=== PATIENT | male | born 1975 | race Caucasian/White ===

== ENCOUNTER 2020-07-27 17:47 | Outpatient (CLI) | payer BC, SELFPAY | END 2020-07-27 17:48 | disposition home or self-care (01) | LOC: ANHCOVIDVC 17:47 | PROVIDERS: PCP Family Medicine | DX: Z23 Encounter for immunization (principal) | CPT/HCPCS: 0001A; 91300 ==

== ENCOUNTER 2020-08-02 18:08 | Emergency (ER) | payer BC, SELFPAY ==
[2020-08-02] VITALS (21 sets, daily range): BP systolic 140–167; BP diastolic 89–123; PULSE 63–84; RESP 5–23; TEMP 36.4; O2SAT 94–99
--- NOTE | ~2020-08-02 | XR_ITS ---
XR chest 1V portable DATE: 08/02/2020 18:26 INDICATION: Right chest pain, shoulder pain for 3 weeks TECHNIQUE: Portable AP chest COMPARISON: 08/09/2015 PA chest, right ribs FINDINGS: Normal heart size. No hilar or mediastinal enlargement. No pulmonary infiltrate or consol idation, pulmonary vascular congestion or pleural effusion or pneumothorax. IMPRESSION: No active cardiopulmonary disease Reviewed, dictated and finalized at location A.
--- NOTE | 2020-08-02 18:10 | ECG_ITS ---
Measurements Intervals [place] Rate: 80 P: 45 UT: 160 QRS: 37 QRSD: 105 T: 30 QT: 374 QTc: 433 Interpretive Statements SINUS RHYTHM INCOMPLETE RIGHT BUNDLE BRANCH BLOCK BORDERLINE ECG Electronically Signed On 08-02-2020 18:44:52 CDT by Neptali Cosme D.O.
[2020-08-02] MEDS: ASPIRIN 81 MG CHEWABLE TABLET 324 MG PO (18:19)
[2020-08-02 18:22] LABS: Basophils Absolute Auto 0.1 K/mm3 (0.0-0.1); Basophils Percent Auto 0.6 % (0.2-1.2); Eosinophils Absolute Auto 0.1 K/mm3 (0-0.3); Hematocrit 41.1 % (42.0-52.0); Immature Granulocyte Absolute 0.03 K/mm3 (0.00-0.031); Immature Granulocyte Percent A 0.4 % (0-0.5); Lymphocytes Percent Auto 25.4 % (18.3-44.2); Mean Corpuscular HGB Conc 34.1 g/dl (32-36); Mean Corpuscular Hemoglobin 31.5 pg (26-34); Mean Corpuscular Volume 92.4 fl (80-100); Mean Platelet Volume 9.5 fl (7.4-10.4); Monocytes Absolute Auto 0.6 K/mm3 (0.1-0.6); Monocytes Percent Auto 6.6 % (2.6-8.5); Neutrophils Absolute Auto 5.5 K/mm3 (1.3-6.7); Platelet Count Result 230 k/mm3 (150-375); Red Blood Count 4.45 M/mm3 (4.6-6.20); Red Cell Distribution Width 12.5 % (11.5-14.5); White Blood Count 8.3 K/mm3 (4.5-10.0)
[2020-08-02 18:36] LABS: INR 0.9; Partial Thromboplastin Time 28.3 SECONDS (22.3-36.8); Prothrombin Time 12.8 Seconds (11.1-14.7)
[2020-08-02 18:42] LABS: Anion Gap 11 mmol/L (8-16); Blood Urea Nitrogen 17 mg/dL (9-20); Calcium 9.6 mg/dL (8.4-10.2); Carbon Dioxide 27 mmol/L (22-30); Chloride 101 mmol/L (98-107); Estimated CRCL calculation 132 ml/min; Estimated Glomerular Filt Rate > 60; Glucose 99 mg/dL (75-110); Potassium 3.8 mmol/L (3.4-5.0); Sodium 139 mmol/L (137-145)
--- NOTE | 2020-08-02 18:46 | ED.GENADULT ---
HPI - General Adult General Chief complaint: Chest Pain Stated complaint: right chest pain Time Seen by Provider: 08/02/20 18:22 Source: patient History of Present Illness HPI narrative: Patient is a 44 y/o male complaining right sided chest pain radiating to right scapula for 2 weeks. he describes his pain as both sharp and dull. He rates his pain as 4/10. He took Ibuprofen and Aleve, which did not help. Related Data Allergies Allergy/AdvReac Type Severity Reaction Status Date / Time erythromycin base Allergy Unknown VOMITING? Verified 08/02/20 18:15 Penicillins Allergy Unknown Facial Verified 08/02/20 18:15 swelling Review of Systems Constitutional: Constitutional: Denies chills, Denies fever(s), Denies headache(s) and Denies weakness Eyes: Eyes: Denies blurry vision ENT: Denies headache(s) and Denies neck pain Cardiovascular: Cardiovascular: Reports chest pain and Denies dyspnea Respiratory: Respiratory: Denies cough and Denies dyspnea Gastrointestinal: Gastrointestinal: Denies abdominal pain, Denies diarrhea, Denies nausea and Denies vomiting Genitourinary: Genitourinary: Denies hematuria and Denies dysuria Musculoskeletal: Musculoskeletal: Reports back pain, Denies neck pain and Reports other (right scapula and back pain) Neurologic: Denies headache(s) and Denies weakness PMFSH Family History Family History Father Family history of hypercholesterolemia Grandparent Hypertension Family history of cardiovascular disease Carcinoma of colon Social History Social History Second hand tobacco smoke exposure: No Alcohol intake: current Exam Const: General: no acute distress and well developed Orientation/consciousness: oriented to person, oriented to place, oriented to time and patient oriented x3 HENMT: Head: normocephalic Ears: external ears normal General nose exam: Normal external nose present Eyes: General: appearance normal, both eyes and all related structures Conjunctivae: conjunctivae normal Neck: Neck: normal visual inspection and full ROM Chest: Chest palpation & inspection: normal inspection of the chest and no tenderness Resp: Effort & Inspection: normal respiratory effort Auscultation: clear to auscultation bilaterally Cardio: Rate: regular rate Rhythm: regular rhythm GI: GI Palp: No abdominal tenderness and Yes Soft to palpation Skin: General skin exam: normal color and turgor normal Neuro: General: oriented to person, oriented to place, oriented to time and patient oriented x3 Cognition (Neuro): normal cognition Extrem: General: normal to inspection, full ROM and no pedal edema Psych: Appearance: grossly normal Mental Status: mental status grossly normal Affect: normal affect Course Vital Signs Vital signs: Vital Signs Temperature 36.4 C L 08/02/20 18:11 Pulse Rate 84 08/02/20 18:11 Respiratory Rate 16 08/02/20 18:11 Blood Pressure 158/102 H 08/02/20 18:11 Pulse Oximetry 97 08/02/20 18:11 Temperature 36.4 C L 08/02/20 18:11 Pulse Rate 63 08/02/20 23:01 Respiratory Rate 17 08/02/20 23:01 Blood Pressure 141/91 H 08/02/20 23:01 Pulse Oximetry 97 08/02/20 23:01 Medical Decision Making Vital Signs Vital Signs: Vital Signs Temperature 36.4 C L 08/02/20 18:11 Pulse Rate 84 08/02/20 18:11 Respiratory Rate 16 08/02/20 18:11 Blood Pressure 158/102 H 08/02/20 18:11 Pulse Oximetry 97 08/02/20 18:11 Temperature 36.4 C L 08/02/20 18:11 Pulse Rate 63 08/02/20 23:01 Respiratory Rate 17 08/02/20 23:01 Blood Pressure 141/91 H 08/02/20 23:01 Pulse Oximetry 97 08/02/20 23:01 Lab Data Result diagrams: 08/02/20 18:16 08/02/20 18:16 Labs: Lab Results 08/02/20 08/02/20 08/02/20 Range/Units 18:16 18:16 18:16 WBC 8.3 (4.5-10.0) K/mm3 RBC 4.45 L (4.6-6.2
[2020-08-02 18:54] LABS: D Dimer 0.47 ug/mL (<0.48); Troponin I < 0.012 ng/mL (0.000-0.034)
--- NOTE | 2020-08-02 19:10 | PC.NURSE ---
Report received from KAYLIN Thompson. Pt resting comfortably on stretcher. States continues to have mild pain to right scapular area. Pt also seems mildly stressed regarding his BP. States has been reading fine at home; high when he was at [place] [employer], but not that high . Made aware of pending results. SR without ectopy via monitor.
[2020-08-02] MEDS: KETOROLAC 15 MG/ML VIAL (*BKC) IV PUSH (19:29)
[2020-08-02 21:39] LABS: Troponin I < 0.012 ng/mL (0.000-0.034)
[2020-08-02] MEDS: lisinopriL 20 MG TABLET PO (21:48)
[2020-08-02] MEDS: hydroCHLOROthiazide 25 MG TABLET PO (21:49)
--- NOTE | 2020-08-02 23:03 | PC.NURSE ---
Awaiting disposition per Dr. Goldberg. Pt resting comfortably on stretcher, denies needs at present.
== END 2020-08-02 23:00 | disposition home or self-care (01) ==
PROVIDERS: Emergency Medicine; Emergency Provider Emergency Medicine; PCP Family Medicine
DX: R07.9 Chest pain, unspecified (principal); I10 Essential (primary) hypertension; I45.10 Unspecified right bundle-branch block
CPT/HCPCS: 36415; 71045; 80048; 84484; 85025; 85380; 85610; 85730; 93005; 96374; 99284; A9270; J1885

== ENCOUNTER 2020-08-17 17:45 | Outpatient (CLI) | payer BC, SELFPAY | END 2020-08-17 17:46 | disposition home or self-care (01) | LOC: ANHCOVIDVC 17:45 | PROVIDERS: PCP Family Medicine | DX: Z23 Encounter for immunization (principal) | CPT/HCPCS: 0002A; 91300 ==

== ENCOUNTER 2021-04-18 12:11 | Emergency (ER) | payer BC, SELFPAY ==
[2021-04-18] VITALS (7 sets, daily range): BP systolic 114–131; BP diastolic 46–88; PULSE 75–94; RESP 18; TEMP 36.7; O2SAT 98–100
--- NOTE | ~2021-04-18 | CT_ITS ---
EXAMINATION: CT abdomen pelvis w con DATE: 04/18/2021 15:54 INDICATION: Right lower quadrant abdominal pain. TECHNIQUE: Computed tomography (CT) of the abdomen and pelvis was performed with 100 mL Omnipaque 350 intravenous contrast. Automated exposure control and iterative reconstruction technique were employe d. The dose-length product was 1537.52 mGy-cm. COMPARISON: None. FINDINGS: The visualized portions of the lung bases demonstrate mild atelectasis. No pleural effusion . The heart size is normal. No pericardial effusion. The liver, gallbladder, spleen, pancreas, adrena l glands, and kidneys are normal. The appendix is normal. There is wall thickening of the ascending c olon with adjacent mild fat stranding. There are no dilated loops of bowel. There are no pathological ly enlarged lymph nodes. There is trace pelvic ascites. There are bilateral inguinal hernias containi ng fat. There is mild lumbar spondylosis. IMPRESSION: 1. Wall thickening of the ascending colon with adjacent mild fat stranding, consistent with colitis. 2. Bilateral inguinal hernias containing fat. Reviewed, dictated and finalized at location A. RINTENDENT METER TESTS IMPRESSION: 1. Wall thickening of the ascending colon with adjacent mild fat stranding, con sistent with colitis. 2. Bilateral inguinal hernias containing fat.
[2021-04-18 13:00] LABS: Basophils Percent Auto 0.3 % (0.2-1.2); Eosinophils Absolute Auto 0.1 K/mm3 (0-0.3); Eosinophils Percent Auto 0.8 % (0-4.4); Hematocrit 39.8 % (42.0-52.0); Hemoglobin 13.6 g/dL (14.0-18.0); Immature Granulocyte Absolute 0.07 K/mm3 (0.00-0.031); Immature Granulocyte Percent A 0.6 % (0-0.5); Lymphocytes Absolute Auto 1.67 K/mm3 (0.9-3.2); Lymphocytes Percent Auto 14.1 % (18.3-44.2); Mean Corpuscular HGB Conc 34.2 g/dl (32-36); Mean Corpuscular Hemoglobin 32.5 pg (26-34); Mean Corpuscular Volume 95.2 fl (80-100); Mean Platelet Volume 9.2 fl (7.4-10.4); Monocytes Absolute Auto 0.6 K/mm3 (0.1-0.6); Monocytes Percent Auto 5.4 % (2.6-8.5); Neutrophils Absolute Auto 9.3 K/mm3 (1.3-6.7); Neutrophils Percent Auto 78.8 % (45.5-73.1); Platelet Count Result 203 k/mm3 (150-375); Red Blood Count 4.18 M/mm3 (4.6-6.20); Red Cell Distribution Width 12.4 % (11.5-14.5); White Blood Count 11.9 K/mm3 (4.5-10.0)
[2021-04-18 13:05] LABS: Add Urine Microscopic? NO; Appearance Urine Clear (Clear); Bilirubin Urine Negative (Negative); Blood Urine Negative (Negative); Color Urine Straw (Yellow); Glucose Urine UA Negative (Negative); Ketones Urine Negative (Negative); Leukocyte Esterase Ur Negative LEU/UL (Negative); Nitrate Urine Negative (Negative); Protein Urine Negative (Negative); Urobilinogen Urine Negative mg/dL (<2.0)
[2021-04-18 13:15] LABS: Alanine Aminotransferase 40 U/L (4-50); Albumin Level 4.6 g/dL (3.5-5.1); Alkaline Phosphatase 128 U/L (38-126); Anion Gap 9 mmol/L (8-16); Aspartate Amino Transferase 42 U/L (17-59); Bilirubin,Total 0.4 mg/dL (0.2-1.3); Blood Urea Nitrogen 10 mg/dL (9-20); Calcium 9.2 mg/dL (8.4-10.2); Carbon Dioxide 29 mmol/L (22-30); Chloride 96 mmol/L (98-107); Estimated CRCL calculation 117 ml/min; Estimated Glomerular Filt Rate > 60; Glucose 95 mg/dL (65-110); Lipase 85 U/L (23-300); Potassium 3.8 mmol/L (3.4-5.0); Sodium 134 mmol/L (137-145)
[2021-04-18 13:37] LABS: Specific Grav Ur 1.003 (1.001-1.035)
[2021-04-18] MEDS: ONDANSETRON INJ 4 MG/2 ML VIAL IV PUSH (17:21)
[2021-04-18] MEDS: MORPHINE SULFATE (*CRX) 2 MG/ML INJ IV PUSH (17:21)
--- NOTE | 2021-04-18 18:15 | PC.NURSE ---
Pt unable to give stool sample at this time EDP made aware.
--- NOTE | 2021-04-18 20:21 | ED.GENADULT ---
HPI - General Adult General Chief complaint: Abdominal Pain Stated complaint: Abdominal pain. Time Seen by Provider: 04/18/21 15:19 Source: patient and other (Primary care) Mode of arrival: ambulatory Limitations: no limitations History of Present Illness HPI narrative: Patient is a 45-year-old male with chief complaint of right upper and lower quadrant discomfort that began 2 days ago and accompanied by diarrhea. Patient reports that his diarrhea was liquid over the weekend but today has just been soft stools. He reports that he saw his primary care today and due to the location of the discomfort they wanted him to be evaluated to rule out appendicitis. Patient states that he has not been taking anything [id number] for his discomfort today as he did not want to cause any abnormal symptoms. Patient denies any vomiting. Patient denies any blood or mucus in his stool. Related Data Home Medications Medication Instructions Recorded Confirmed allopurinol mg PO DAILY 04/18/21 Allergies Allergy/AdvReac Type Severity Reaction Status Date / Time erythromycin base Allergy Unknown VOMITING? Verified 04/18/21 15:29 Penicillins Allergy Unknown Facial Verified 04/18/21 15:29 swelling Review of Systems Review of Systems: CONSTITUTIONAL: Denies fever, chills, or sweats. EYES: Denies visual changes, redness, or discharge. ENT: Denies rhinorrhea, congestion, sore throat, or otalgia. CARDIOVASCULAR: Denies chest pain, palpitations, or edema. RESPIRATORY: Denies cough or dyspnea. GASTROINTESTINAL: Reports diarrhea and abdominal pain denies vomiting GENITOURINARY: Denies dysuria or hematuria. SKIN: Denies rash or itching. MUSCULOSKELETAL: Denies back pain, joint pain, or myalgia. NEUROLOGIC: Denies headache, numbness, dizziness, or weakness. PSYCHIATRIC: Denies anxiety or depression. [facility] Family History Family History Father Family history of hypercholesterolemia Grandparent Hypertension Family history of cardiovascular disease Carcinoma of colon Social History Social History Second hand tobacco smoke exposure: No Alcohol intake: current Exam Narrative: GENERAL: Well-appearing, well-nourished, and in no acute distress. Does not appear toxic. HEAD: Normocephalic, atraumatic. EYES: PERRLA and EOMI. CHEST: Clear to auscultation. No respiratory distress. No wheezes rales or rhonchi HEART: Regular rate and rhythm. No murmur heard. Normal peripheral pulses. ABDOMEN: Soft, tender to right upper and lower quadrant, nondistended, normal active bowel sounds. EXTREMITIES: Normal range of motion. No edema. SKIN: Warm, dry, no rash. NEURO: No focal deficits. Alert and oriented x3. PSYCH: Normal mood and affect. Course Vital Signs Vital signs: Vital Signs Temperature 98.0 F 04/18/21 12:34 Pulse Rate 81 04/18/21 12:34 Respiratory Rate 18 04/18/21 12:34 Blood Pressure 126/75 04/18/21 12:34 Pulse Oximetry 99 04/18/21 12:34 Temperature 98.0 F 04/18/21 12:34 Pulse Rate 75 04/18/21 18:34 Respiratory Rate 18 04/18/21 18:34 Blood Pressure 114/80 04/18/21 18:34 Pulse Oximetry 100 04/18/21 18:34 Medical Decision Making [facility] Narrative Medical decision making narrative: Patient has colitis. Patient white blood cell count is slightly elevated. Patient has not had any stool since being in emergency department and cannot provide a sample at this time. Patient will be started on Levaquin and Flagyl. Patient has been instructed to do clear liquid diet over the next 2 days and then advance diet as tolerated. Patient instructed to keep close follow-up with his primary care as they may culture his stool. Patient been instructed to return to emergency department if he has any worsening or emergent symptoms. Vital Signs Vital Signs: Vital Signs Temperature 98.0 F 04/18/21 12:3
== END 2021-04-18 18:45 | disposition home or self-care (01) ==
PROVIDERS: Emergency Provider Emergency Medicine; PCP Family Medicine
DX: K52.9 Noninfective gastroenteritis and colitis, unspecified (principal); K40.20 Bilateral inguinal hernia, without obstruction or gangrene, not specified as recurrent
CPT/HCPCS: 36415; 74177; 80053; 81003; 83690; 85025; 96374; 96375; 99284; J2270; J2405; Q9967

== ENCOUNTER 2022-01-29 14:11 | Emergency (ER) | payer BC, SELFPAY ==
[2022-01-29 14:19] VITALS: BP 143/86; PULSE 96; RESP 16; TEMP 36.4; O2SAT 100
--- NOTE | 2022-01-29 14:24 | ED.ABDPAIN ---
HPI - Abdominal Pain General Chief Complaint: Abdominal Pain Stated Complaint: R SIDED ABD PAIN Time Seen by Provider: 01/29/22 14:22 Source: patient and RN notes reviewed Mode of arrival: ambulatory Limitations: no limitations History of Present Illness HPI narrative: 46-year-old man presents concern for right lower abdominal pain and diarrhea. Reports symptoms started yesterday, reports he is not vomiting or nauseated, he ate lunch. He reports his last bowel movement was today. He reports he felt feverish this morning, however did not have a temperature. He reports a history of colitis MD elicited complaint: abdominal pain Related Data Home Medications Medication Instructions Recorded Confirmed allopurinol 100 mg tablet 100 mg PO DAILY 04/18/21 01/29/22 Allergies Allergy/AdvReac Type Severity Reaction Status Date / Time erythromycin base Allergy Unknown VOMITING? Verified 01/29/22 14:18 Penicillins Allergy Unknown Facial Verified 01/29/22 14:18 swelling Review of Systems Review of Systems: CONSTITUTIONAL: Denies malaise, chills, sweats. Reports feeling feverish ENT: Denies rhinorrhea, congestion, sinus pain, otalgia or sore throat. CARDIOVASCULAR: Denies chest pain, palpitations, or edema. RESPIRATORY: Denies cough or dyspnea. GASTROINTESTINAL: Reports right lower quadrant abdominal pain, diarrhea. Denies nausea, vomiting GENITOURINARY: Denies dysuria or hematuria. MUSCULOSKELETAL: Denies myalgia. NEUROLOGIC: Denies headache. All systems reviewed & are unremarkable except as noted in HPI and below PMFSH Family History Family History Father Family history of hypercholesterolemia Grandparent Hypertension Family history of cardiovascular disease Carcinoma of colon Social History Social History Second hand tobacco smoke exposure: No Alcohol intake: current Comments At time of signature, agree with nursing past medical, surgical, social and family history. There is no relevant family history pertinent to the presenting complaint Exam Narrative: GENERAL: Well-appearing, well-nourished, and in no acute distress. HEAD: Normocephalic, atraumatic. EYES: PERRLA, conjunctivae clear ENT: Nares clear. Mucous membranes moist. NECK: Supple. No lymphadenopathy CHEST: Speaks in full sentences. No respiratory distress. HEART: Regular rate and rhythm. ABDOMEN: Soft, obese, nondistended. Right lower quadrant tenderness. No guarding, rebound tenderness, or rigidity. No pulsatile masses. Bowel sounds present in all four quadrants. No organomegaly. No periumbilical tenderness. SKIN: Warm, dry, no rash. NEURO: Alert and oriented x3. PSYCH: Normal mood and affect Course Course Emergency Course: Patient is aware of, understands and agrees to be seen in the emergency department. Patient agrees to proceed directly to the emergency department. Portions of this record may have been created with voice recognition software Level of Care: Express Care Visit Vital Signs Vital signs: Vital Signs Temperature 97.5 F L 01/29/22 14:19 Pulse Rate 96 01/29/22 14:19 Respiratory Rate 16 01/29/22 14:19 Blood Pressure 143/86 H 01/29/22 14:19 Pulse Oximetry 100 01/29/22 14:19 Temperature 97.5 F L 01/29/22 14:19 Pulse Rate 96 01/29/22 14:19 Respiratory Rate 16 01/29/22 14:19 Blood Pressure 143/86 H 01/29/22 14:19 Pulse Oximetry 100 01/29/22 14:19 Reviewed. Transfer Transfered to: [facility]: Other Transfer rationale: Called abdominal pain Accepting physician: Jack MEDINA - Abdominal Pain MDM Narrative Medical decision making narrative: Exam findings warrant further evaluation emergency department; patient is non-toxic appearing and is in no distress. Patient is appropriate for transfer via private vehicle Critical Care Time Critical Care Time Cr
== END 2022-01-29 14:32 | disposition short-term general hospital (02) ==
PROVIDERS: Emergency Provider Nurse Practitioner; PCP Family Medicine
DX: R10.31 Right lower quadrant pain (principal); E78.00 Pure hypercholesterolemia, unspecified; I10 Essential (primary) hypertension
CPT/HCPCS: 99212; G0463

== ENCOUNTER 2022-01-29 14:49 | Emergency (ER) | payer BC, SELFPAY ==
--- NOTE | ~2022-01-29 | CT_ITS ---
EXAMINATION: CT abdomen pelvis w con DATE: 01/29/2022 16:50 INDICATION: abd pain, diarrhea TECHNIQUE: Computed tomography (CT) of the abdomen and pelvis was performed with 100 mL Omnipaque-350 intravenous contrast. Automated exposure control and iterative reconstruction technique were employe d. The dose-length product was 937.38 mGy-cm. COMPARISON: 04/18/2021. FINDINGS: Lower thorax: Coronary versus mitral calcification. Dependent atelectasis. Liver: Normal. Biliary/Gallbladder: Gallbladder is normal. No bile duct dilation. Pancreas: No mass or duct dilation. Spleen: Normal. Adrenals:No mass. Kidneys: No mass, stone, or hydronephrosis. GI tract: No small or large bowel dilation. Normal appendix. Mesentery/Peritoneum: No ascites, mass, or free air. Retroperitoneum: No mass. Mild atherosclerotic abdominal aortic and/or arterial calcifications. Pelvis: Pelvic organs are within normal limits. Soft Tissues: Small uncomplicated fat-containing bilateral inguinal hernias. Bones: No acute osseous finding. IMPRESSION: No acute abdominopelvic process detected Reviewed, dictated and finalized at location K.
[2022-01-29 14:53] VITALS: BP 127/72; PULSE 76; RESP 14; TEMP 36.7; O2SAT 100
[2022-01-29 15:54] LABS: Appearance Urine Clear (Clear); Basophils Percent Auto 0.5 % (0.2-1.2); Bilirubin Urine Negative (Negative); Blood Urine Negative (Negative); Color Urine Yellow (Yellow); Eosinophils Absolute Auto 0.1 K/mm3 (0-0.3); Glucose Urine UA Negative (Negative); Hematocrit 38.2 % (42.0-52.0); Immature Granulocyte Absolute 0.02 K/mm3 (0.00-0.031); Immature Granulocyte Percent A 0.3 % (0-0.5); Ketones Urine Negative (Negative); Leukocyte Esterase Ur Negative LEU/UL (Negative); Lymphocytes Absolute Auto 1.29 K/mm3 (0.9-3.2); Lymphocytes Percent Auto 20.7 % (18.3-44.2); Mean Corpuscular Hemoglobin 32.2 pg (26-34); Mean Corpuscular Volume 94.6 fl (80-100); Mean Platelet Volume 9.1 fl (7.4-10.4); Monocytes Absolute Auto 0.6 K/mm3 (0.1-0.6); Monocytes Percent Auto 8.8 % (2.6-8.5); Neutrophils Absolute Auto 4.3 K/mm3 (1.3-6.7); Neutrophils Percent Auto 68.7 % (45.5-73.1); Nitrate Urine Negative (Negative); Platelet Count Result 182 k/mm3 (150-375); Protein Urine Negative (Negative); Red Blood Count 4.04 M/mm3 (4.6-6.20); Urobilinogen Urine 0.2 mg/dL (<2.0); White Blood Count 6.2 K/mm3 (4.5-10.0); pH Urine 8.5 (5.0-9.0)
[2022-01-29 15:57] VITALS: BP 113/70; PULSE 76; RESP 18; O2SAT 100
--- NOTE | 2022-01-29 15:57 | ED.ABDPAIN ---
HPI - Abdominal Pain General Chief Complaint: Abdominal Pain Stated Complaint: RLQ pain Time Seen by Provider: 01/29/22 14:55 Source: patient Mode of arrival: ambulatory Limitations: no limitations History of Present Illness HPI narrative: This is a 46 year old male that presents to the ER for RLQ pain ongoing since yesterday. Associated with diarrhea. Denies fevers, dysuria, hematuria, or vomiting. Related Data Home Medications Medication Instructions Recorded Confirmed allopurinol 100 mg tablet 100 mg PO DAILY 04/18/21 01/29/22 Allergies Allergy/AdvReac Type Severity Reaction Status Date / Time erythromycin base Allergy Unknown VOMITING? Verified 01/29/22 14:18 Penicillins Allergy Unknown Facial Verified 01/29/22 14:18 swelling Review of Systems Review of Systems: CONSTITUTIONAL: Denies fever GASTROINTESTINAL: Reports nausea, and diarrhea. Denies vomiting GENITOURINARY: Denies dysuria or hematuria. All systems reviewed & are unremarkable except as noted in HPI and below PMFSH Past Medical History Medical History (Updated 01/29/22 @ 17:06 by Paloma Do PA-C) History of hypertension Family History Family History Father Family history of hypercholesterolemia Grandparent Hypertension Family history of cardiovascular disease Carcinoma of colon Social History Social History Second hand tobacco smoke exposure: No Alcohol intake: current Exam Narrative: GENERAL: Well-appearing, well-nourished, and in no acute distress. HEAD: Normocephalic, atraumatic. EYES: EOMI. CHEST: Clear to auscultation. No respiratory distress. No wheezes rales or rhonchi HEART: Regular rate and rhythm. No murmur heard. Normal peripheral pulses. ABDOMEN: Soft, nondistended, normal active bowel sounds. Mild tenderness to palpation in the right lower quadrant, without guarding. No CVA tenderness EXTREMITIES: Normal range of motion. No edema. SKIN: Warm, dry, no rash. NEURO: No focal deficits. Alert and oriented x3. PSYCH: Normal mood and affect Course Vital Signs Vital signs: Vital Signs Temperature 98.0 F 01/29/22 14:53 Pulse Rate 76 01/29/22 14:53 Respiratory Rate 14 01/29/22 14:53 Blood Pressure 127/72 01/29/22 14:53 Pulse Oximetry 100 01/29/22 14:53 Oxygen Delivery Room Air 01/29/22 14:53 Temperature 98.0 F 01/29/22 14:53 Pulse Rate 76 01/29/22 15:57 Respiratory Rate 18 01/29/22 15:57 Blood Pressure 113/70 01/29/22 15:57 Pulse Oximetry 100 01/29/22 15:57 Oxygen Delivery Room Air 01/29/22 14:53 MDM - Abdominal Pain MDM Narrative Medical decision making narrative: Patient presents emergency department for abdominal discomfort and diarrhea. He is afebrile and nontoxic-appearing. His vitals are stable. CBC is without leukocytosis. Metabolic panel and lipase without concerning findings. UA without evidence of infection. CT scan of the abdomen and pelvis without acute findings. Patient was updated on case findings. Instructed to have follow-up with primary care doctor. He was given warnings to return to the ER Lab Data Attestation: I reviewed the patient's lab results. Result diagrams: 01/29/22 15:43 01/29/22 15:43 Labs: Lab Results 01/29/22 01/29/22 01/29/22 Range/Units 15:43 15:43 15:43 WBC 6.2 (4.5-10.0) K/mm3 RBC 4.04 L (4.6-6.20) M/mm3 Hgb 13.0 L (14.0-18.0) g/dL Hct 38.2 L (42.0-52.0) % MCV 94.6 (80-100) fl MCH 32.2 (26-34) pg MCHC 34.0 (32-36) g/dl RDW 13.0 (11.5-14.5) % Plt Count 182 (150-375) k/mm3 MPV 9.1 (7.4-10.4) fl Immature Gran % (Auto) 0.3 (0-0.5) % Neut % (Auto) 68.7 (45.5-73.1) % Lymph % (Auto) 20.7 (18.3-44.2) % [place] % (Auto) 8.8 H (2.6-8.5) % Eos % (Auto) 1.0 (0-4.4) % Baso % (Auto) 0.5 (0.2-1.2) % Lymp
[2022-01-29 16:00] LABS: Alanine Aminotransferase 39 U/L (6-50); Albumin Level 4.2 g/dL (3.5-5.1); Alkaline Phosphatase 96 U/L (38-126); Anion Gap 8 mmol/L (8-16); Aspartate Amino Transferase 47 U/L (17-59); Bilirubin,Total 0.3 mg/dL (0.2-1.3); Blood Urea Nitrogen 16 mg/dL (9-20); Calcium 9.1 mg/dL (8.4-10.2); Carbon Dioxide 28 mmol/L (22-30); Chloride 102 mmol/L (98-107); Estimated CRCL calculation 109 ml/min; Estimated Glomerular Filt Rate > 60; Glucose 100 mg/dL (65-110); Lipase 176 U/L (23-300); Potassium 3.7 mmol/L (3.4-5.0); Sodium 138 mmol/L (137-145)
[2022-01-29 16:04] LABS: Add Urine Microscopic? NO
--- NOTE | 2022-01-29 16:40 | PC.NURSE ---
Pt to CT
[2022-01-29 17:30] VITALS: BP 101/75; PULSE 73; RESP 18; O2SAT 100
== END 2022-01-29 17:30 | disposition home or self-care (01) ==
PROVIDERS: Physician Assistant; Emergency Provider Emergency Medicine; PCP Family Medicine
DX: R19.7 Diarrhea, unspecified (principal); I10 Essential (primary) hypertension
CPT/HCPCS: 36415; 74177; 80053; 81003; 83690; 85025; 99284; Q9967

== ENCOUNTER 2022-07-10 08:21 | Outpatient (CLI) | payer OTHER, SELFPAY ==
[2022-07-10 18:48] LABS: Kit Draw Collected
== END 2022-07-10 08:22 | disposition home or self-care (01) ==
LOC: ANHGOSHLAB 08:22
PROVIDERS: PCP Family Medicine; Visit Provider Clinical Nurse Specialist
DX: I10 Essential (primary) hypertension (principal); Z13.228 Encounter for screening for other metabolic disorders
CPT/HCPCS: 36415

== ENCOUNTER 2022-07-18 07:46 | Emergency (ER) | payer OTHER, SELFPAY ==
[2022-07-18] VITALS (13 sets, daily range): BP systolic 113–129; BP diastolic 74–93; PULSE 70–89; RESP 16–23; TEMP 36.7; O2SAT 97–100
--- NOTE | ~2022-07-18 | XR_ITS ---
EXAMINATION: XR chest 2V DATE: 07/18/2022 08:14 INDICATION: Chest pain. TECHNIQUE: Frontal and lateral views of the chest were obtained. COMPARISON: Chest single view 08/02/2020, CT abdomen and pelvis 01/29/2022 FINDINGS: There is no pneumonia, pleural effusion, or pneumothorax. The heart size is normal. IMPRESSION: 1. No acute cardiopulmonary disease. Reviewed, dictated and finalized at location A. [employer]INTENANCE MANAGER
--- NOTE | 2022-07-18 07:51 | ECG_ITS ---
Measurements Intervals [place] Rate: 72 P: 51 VT: 186 QRS: 52 QRSD: 96 T: 42 QT: 367 QTc: 404 Interpretive Statements SINUS RHYTHM BASELINE ARTIFACT RSR' IN V1, NORMAL VARIATION NORMAL ECG COMPARED TO ECG 08/02/2020 18:15:29 NO SIGNIFICANT CHANGES Electronically Signed On 07-18-2022 15:19:51 [employer]IST by Jaret Goncalves M.D.
[2022-07-18 08:06] LABS: Basophils Absolute Auto 0.1 K/mm3 (0.0-0.1); Basophils Percent Auto 0.8 % (0.2-1.2); Eosinophils Absolute Auto 0.1 K/mm3 (0-0.3); Hematocrit 42.9 % (42.0-52.0); Hemoglobin 14.6 g/dL (14.0-18.0); Immature Granulocyte Absolute 0.02 K/mm3 (0.00-0.031); Immature Granulocyte Percent A 0.3 % (0-0.5); Lymphocytes Absolute Auto 1.28 K/mm3 (0.9-3.2); Lymphocytes Percent Auto 20.7 % (18.3-44.2); Mean Corpuscular Hemoglobin 31.8 pg (26-34); Mean Corpuscular Volume 93.5 fl (80-100); Mean Platelet Volume 9.2 fl (7.4-10.4); Monocytes Absolute Auto 0.5 K/mm3 (0.1-0.6); Monocytes Percent Auto 7.8 % (2.6-8.5); Neutrophils Absolute Auto 4.3 K/mm3 (1.3-6.7); Neutrophils Percent Auto 69.4 % (45.5-73.1); Platelet Count Result 216 k/mm3 (150-375); Red Blood Count 4.59 M/mm3 (4.6-6.20); Red Cell Distribution Width 12.2 % (11.5-14.5); White Blood Count 6.2 K/mm3 (4.5-10.0)
[2022-07-18 08:15] LABS: Alanine Aminotransferase 34 U/L (6-50); Albumin Level 4.9 g/dL (3.5-5.1); Alkaline Phosphatase 82 U/L (38-126); Anion Gap 6 mmol/L (8-16); Aspartate Amino Transferase 37 U/L (17-59); Bilirubin,Total 0.5 mg/dL (0.2-1.3); Blood Urea Nitrogen 17 mg/dL (9-20); Calcium 9.4 mg/dL (8.4-10.2); Carbon Dioxide 31 mmol/L (22-30); Chloride 97 mmol/L (98-107); Estimated CRCL calculation 112 ml/min; Estimated Glomerular Filt Rate > 60; Glucose 77 mg/dL (65-110); Lipase 176 U/L (23-300); Potassium 3.8 mmol/L (3.4-5.0); Sodium 134 mmol/L (137-145)
[2022-07-18 08:18] LABS: Prothrombin Time 12.5 Seconds (11.1-14.7)
[2022-07-18 08:20] LABS: Partial Thromboplastin Time 27.7 SECONDS (22.3-36.8)
[2022-07-18 08:26] LABS: Troponin I < 0.012 ng/mL (0.000-0.034)
[2022-07-18] MEDS: ASPIRIN 81 MG CHEWABLE TABLET 324 MG PO (08:26)
--- NOTE | 2022-07-18 08:59 | ED.GENADULT ---
HPI - General Adult General Chief complaint: Chest Pain Stated complaint: chest pain Time Seen by Provider: 07/18/22 08:08 History of Present Illness HPI narrative: 46-year-old male with history of hypertension presenting to the emergency department for evaluation of right-sided chest pain. Patient states he does work out and did a new workout Sunday facilitated by his obedience trainer using sandbags. Patient denied any chest pain with exertion during the exercise but states on Sunday he started having some right-sided chest wall tightness. Patient states the pain is worsened with movement. Patient states he did have some radiation of the pain to his posterior shoulder/scapula. Patient denies any associated shortness of breath denies any radiation of the pain to his neck or arms. Patient reports he did have a stress test approximately 2 years ago and this was negative. Patient states he does have history of hypertension but had recent labs drawn reports that his cholesterol was good and denies having diabetes. Related Data Home Medications Medication Instructions Recorded Confirmed allopurinol 100 mg tablet 100 mg PO DAILY 04/18/21 01/29/22 Allergies Allergy/AdvReac Type Severity Reaction Status Date / Time erythromycin base Allergy Unknown VOMITING? Verified 07/03/22 14:27 Penicillins Allergy Unknown Facial Verified 07/03/22 14:27 swelling Review of Systems Review of Systems: CONSTITUTIONAL: Denies fever, chills, or sweats. EYES: Denies visual changes, redness, or discharge. ENT: Denies rhinorrhea, congestion, sore throat, or otalgia. CARDIOVASCULAR: See HPI RESPIRATORY: Denies cough or dyspnea. GASTROINTESTINAL: Denies abdominal pain, nausea, vomiting, or diarrhea. GENITOURINARY: Denies dysuria or hematuria. SKIN: Denies rash or itching. MUSCULOSKELETAL: See HPI NEUROLOGIC: Denies headache, numbness, or weakness. REPLACED BY [facility] Past Medical History Medical History History of hypertension Family History Family History Father Family history of hypercholesterolemia Grandparent Hypertension Family history of cardiovascular disease Carcinoma of colon Social History Social History (Updated 07/03/22 @ 14:29 by Lotus Pederson MA) Smoking status: Never smoker Second hand tobacco smoke exposure: No Alcohol intake: current Lack of Transportation: No Lack of Food: Never True Current Housing: I Have Housing Concerned About Future Housing: No Difficulty Paying Gas/Electric Bills: No Difficulty Paying for Meds: No Currently Unemployed: No Education: Bachelor's Degree Difficulty w/ Childcare or Family Care: No Exam Narrative: APPEARANCE: Well appearing, no pain, no distress, well-nourished. HEAD: normocephalic, atraumatic. EYES: PERRLA/EOMI, conjunctivae clear. NOSE: Normal no drainage NECK: Supple. No adenopathy, no masses. RESPIRATORY: Airway patent, respirations nonlabored. Clear to auscultation bilaterally, no rales, rhonchi, wheezing. CARDIOVASCULAR: Regular rate and rhythm without murmurs rubs or gallops. ABDOMINAL: Soft, nontender, nondistended, normal bowel sounds MUSCULOSKELETAL: Moves all extremities. Reproducible tenderness to the lateral pectoralis. Patient's symptoms were worsened with an gaging of the muscle. NEURO: Alert. Cranial nerves II through XII intact. Grossly intact SKIN: Warm, dry. Normal Color Course Course Emergency Course: 46-year-old male presenting to the emergency department for evaluation of chest pain. Patient's initial EKG showed normal sinus rhythm. Patient's chest x-ray showed no acute cardiopulmonary disease. Patient's initial troponin was negative. Patient is afebrile with no leukocytosis. Patient's pain is very reproducible with palpation. Musculoskeletal etiology is most likely. Patient is having a delta troponin. Patient was updated
[2022-07-18 11:31] LABS: Troponin I < 0.012 ng/mL (0.000-0.034)
== END 2022-07-18 12:34 | disposition home or self-care (01) ==
PROVIDERS: Emergency Provider Emergency Medicine
DX: R07.89 Other chest pain (principal); I10 Essential (primary) hypertension
CPT/HCPCS: 36415; 71046; 80053; 83690; 84484; 85025; 85610; 85730; 93005; 99284; A9270

== ENCOUNTER 2022-08-10 07:43 | Outpatient (CLI) | payer OTHER, SELFPAY ==
--- NOTE | ~2022-08-10 | CT_ITS ---
CT Scan of the Chest without Contrast: Clinical Indication: Chest discomfort Technique: Contiguous sections were acquired throughout the chest without intravenous contrast. Dose reduction technique was used on this scan by utilizing automated exposure control and iterative recon struction technique. The dose-length product (DLP) was 397.52 mGy-cm. Findings: There is no evidence of any significant mediastinal, hilar or axillary lymphadenopathy. The mediastin al soft tissues appear normal. There is no evidence of pleural or pericardial effusion. The lungs are clear. No pulmonary nodules or infiltrates are noted. Images through the upper abdomen reveal no abnormalities. Impression: No significant abnormalities seen. Reviewed, dictated and finalized at location . Impression: No significant abnormalities seen.
--- NOTE | 2022-08-10 07:52 | EST_ITS ---
Patient Info Name: Jose Maria Rosales Age: 46 years : 1975 Gender: Male Ht: 70 in Wt: 230 lbs BSA: 2.30 m2 HR: 71 bpm BP: 116 / 78 mmHg Technical Quality: Fair Exam Date: 08/10/2022 8:57 AM Exam Location: [facility] Pulmonary Exam Room: [facility] STRESS LAB Patient Status: Outpatient Admit Date: 08/10/2022 Staff Ordering Physician: Guerline Serra Market Investigator: Angle Cortez RDCS Attending Provider: DR. HARDING Referring Physician: Ponce MCCORD; Exercise Technologist: Junie Wong CT Exercise Physician: Neptali Harding DO Exam Type: CA stress echo w contrast Study Info Indications R07.9 - Chest pain, unspecified Treadmill exercise stress echocardiogram is performed. Contrast administered to opacify the left ventricle and to improve the deliniation of the left ventricular endocardial borders. Contrast/Agitated Saline Contrast/Ag. Saline: Definity Amount: 2.00 ml Administered By: Angle Cortez [facility] Existing IV Access: Yes IV Access Condition: patent with no signs of infiltration New IV Access: Inner Forearm and Right Site Condition: IV removed Summary 1. 1. Negative Leonard exercise stress test for ischemic ST changes by ECG criteria. 2. 2. Good functional capacity, achieving 12 METs of workload. 3. 3. Appropriate HR response to exercise. 4. 4. Appropriate HR recovery at 1 minute post exercise. 5. 5. Negative stress echocardiogram for ischemia by wall motion analysis. 6. 6. Patient informed of the above results. Stress Echo Findings Left Ventricle Definity contrast administered improved wall motion interpretation. Appropriate increase in LV endocardial thickening with systole. Appropriate augmentation of contractility with systole. No wall motion abnormality. Left Ventricle Definity contrast administered improved wall motion interpretation. Normal LV systolic function, no wall motion abnormality. Protocol: Leonard Stress ECG Details Stage: REST Duration (min): 1 min : 53 sec Speed (mph): 0.0 Grade (%): 0 HR (bpm): 73 SBP (mmHg): 116 DBP (mmHg): 78 METS: --- Stage: REST Duration (min): 55 min : 16 sec Speed (mph): 0.0 Grade (%): 0 HR (bpm): 79 SBP (mmHg): 116 DBP (mmHg): 78 METS: --- Stage: STAGE 1 Duration (min): 1 min : 0 sec Speed (mph): 1.7 Grade (%): 10 HR (bpm): 104 SBP (mmHg): 116 DBP (mmHg): 78 METS: --- Stage: STAGE 1 Duration (min): 2 min : 0 sec Speed (mph): 1.7 Grade (%): 10 HR (bpm): 113 SBP (mmHg): 116 DBP (mmHg): 78 METS: --- Stage: STAGE 1 Duration (min): 3 min : 0 sec Speed (mph): 1.7 Grade (%): 10 HR (bpm): 111 SBP (mmHg): 114 DBP (mmHg): 47 METS: --- Stage: STAGE 2 Duration (min): 1 min : 0 sec Speed (mph): 2.5 Grade (%): 12 HR (bpm): 124 SBP (mmHg): 114 DBP (mmHg): 47 METS: --- Stage: STAGE 2 Duration (min): 2 min : 0 sec Speed (mph): 2.5 Grade (%): 12 HR (bpm): 131 SBP (mmHg): 147 DBP (mmHg): 56 METS: --- Stage: STAGE 2 Pia
[2022-08-10] MEDS: PERFLUTREN LIPID MICROSPHERES 1.5 ML VIAL DILUTED TO 10 ML TOTAL VOLUME IV PUSH (09:30)
== END 2022-08-10 07:44 | disposition home or self-care (01) ==
PROVIDERS: PCP Internal Medicine; Visit Provider Clinical Nurse Specialist
DX: R07.9 Chest pain, unspecified (principal)
CPT/HCPCS: 71250; 93351; C8930

== ENCOUNTER 2022-12-01 12:24 | Outpatient (CLI) | payer OTHER, SELFPAY ==
--- NOTE | ~2022-12-01 | CT_ITS ---
EXAMINATION: CT abdomen pelvis wo con DATE: 12/01/2022 12:46 INDICATION: Left flank pain TECHNIQUE: Computed tomography (CT) of the abdomen and pelvis was performed without intravenous contr ast. The dose-length product (DLP) was 1001.90 mGy-cm. Automated exposure control and iterative recon struction technique were employed. COMPARISON: 01/29/2022 FINDINGS: Minimal dependent atelectasis is present in the lung bases. The heart size is normal. The l iver, spleen, pancreas, gallbladder, and adrenal glands are normal. The kidneys are unremarkable. No stones are identified in the kidneys, ureters, or bladder. No hydronephrosis or hydroureter. No patho logically enlarged abdominal or pelvic lymph nodes are identified. No free intraperitoneal gas or joseline dence of bowel obstruction. The appendix is normal. There is mild lumbar spondylosis. IMPRESSION: 1. No CT correlate for the patient's symptoms. Reviewed, dictated and finalized at location B.
== END 2022-12-01 12:25 | disposition home or self-care (01) ==
PROVIDERS: PCP Internal Medicine; Visit Provider Clinical Nurse Specialist
DX: R10.9 Unspecified abdominal pain (principal)
CPT/HCPCS: 74176

== ENCOUNTER 2023-01-16 01:11 | Day surgery (SDC) | payer OTHER, SELFPAY ==
[2023-01-04 16:05] VITALS: BMI 32.3
[2023-01-16 06:27] VITALS: BP 114/74; PULSE 73; RESP 18; TEMP 36.2; O2SAT 99; BMI 31.8
[2023-01-16] MEDS: LACTATED RINGERS 1,000 ML 150 ML IV CONT (06:55)
--- NOTE | 2023-01-16 07:50 | WPDANESEPPF ---
Anes - Initial Pre Proc Eval Procedure: Operation Date: 01/16/23 08:00 Proposed Procedures p Esophagogastroduodenoscopy & Screening Colonoscopy - Roberto Gonzalez MD Date/Time: 01/16/23 07:50 Surgeon: Roberto Gonzalez MD Pre Op Diagnosis: neoplasm screening,GERD Patient Data Age: 47 Gender: M Height: 1.78 m Weight: 100.5 kg Last Vital Signs Temp 97.2 F L 01/16/23 06:27 Pulse 73 01/16/23 06:27 Resp 18 01/16/23 06:27 BP 114/74 01/16/23 06:27 Pulse Ox 99 01/16/23 06:27 O2 Del Method Room Air 01/16/23 06:27 Allergies Allergy/AdvReac Type Severity Reaction Status Date / Time erythromycin base Allergy Intermediate VOMITING? Verified 01/16/23 06:57 Penicillins Allergy Intermediate Facial Verified 01/16/23 06:57 swelling Home Medications Medication Instructions Recorded Confirmed Type allopurinol 100 mg tablet 100 mg PO DAILY #90 tabs 07/19/22 01/16/23 Rx lisinopril 20 1 tablet PO DAILY #90 tabs 07/19/22 01/16/23 Rx mg-hydrochlorothiazide 25 mg tablet (Zestoretic) cyclobenzaprine 5 mg tablet 5 mg PO TID PRN muscle spasm #20 12/01/22 01/16/23 Rx tabs Patient hx anesthesia problems: none Family hx anesthesia problems: none Results Review: All pre-operative results and documents have been reviewed as part of the pre-operative evaluation. [facility] Past Medical History Medical History History of hypertension Family History Family History Father Family history of hypercholesterolemia Grandparent Hypertension Family history of cardiovascular disease Carcinoma of colon Social History Social History (Updated 11/28/22 @ 11:18 by Sapphire Gamez CMA) Smoking packs per day: 1 Smoking cigarettes per day: 20.0 Years smoked: 10 Smoking pack-years: 10.00 Smoking status: Former smoker Tobacco type: cigarettes Second hand tobacco smoke exposure: No Additional smoking assessment comments: stopped smoking in 2007 smoked for 10 prior to that Alcohol intake: current Drinks per week: 10 Alcohol use details: BEERS Substance use: current Substance use type: does not use Lack of Transportation: No Lack of Food: Never True Current Housing: I Have Housing Concerned About Future Housing: No Difficulty Paying Gas/Electric Bills: No Difficulty Paying for Meds: No Currently Unemployed: No Education: Bachelor's Degree Difficulty w/ Childcare or Family Care: No Living arrangements: with family Spiritual care concerns: No Anes - Eval Final PreProcedure Day of Procedure 01/16/23 07:50 Patient weight: obese Heart: regular rate and rhythm Lungs: clear to auscultation Airway: Mallampati scale class II Neurological: alert and oriented Last oral intake: >/= 8 hours ASA classification: III Emergent: no Anesthetic plan: proceed Anesthesia type and monitoring: general GIVS and standard monitoring Results Review: All pre-operative results and documents have been reviewed as part of the pre-operative evaluation. Informed Consent: The patient's anesthetic plan and its attendant risks and benefits were discussed with the patient/family/POA. Questions were solicited and answers provided to the satisfaction of the patient/family/POA.
--- NOTE | 2023-01-16 07:52 | PM.HPGS ---
History of Present Illness History of Present Illness Consent: Risks, benefits, and alternatives have been discussed and questions answered. Patient agrees to proceed with procedure. Chief complaint: neoplasm screening,GERD Narrative: Jose Maria Rosales is a 47 year old male with non-cardiac chest pain that will improve after pepcid prn, never had scopes Review of Systems Constitutional: Constitutional: Denies headache(s) and Denies weakness Eyes: Eyes: Denies blurry vision ENT: Reports Normal hearing present, Denies headache(s) and Denies neck pain Cardiovascular: Cardiovascular: Denies chest pain and Denies dyspnea Respiratory: Respiratory: Denies dyspnea Gastrointestinal: Gastrointestinal: Reports no additional gastrointestinal complaints Genitourinary: Genitourinary: Denies dysuria Musculoskeletal: Musculoskeletal: Denies neck pain Integumentary/Breasts: Skin/Breast: Denies dry skin Neurologic: Reports Normal hearing present, Denies headache(s) and Denies weakness Psychiatric: Psychiatric: Denies anxiety Endocrine: Endocrine: Denies change in body appearance Hematologic/Lymphatic: Hematologic/Lymphatic: Denies easy bleeding Allergic/Immunologic: Allergic/Immunologic: Denies urticaria PMF Past Medical History Medical History History of hypertension Family History Family History Father Family history of hypercholesterolemia Grandparent Hypertension Family history of cardiovascular disease Carcinoma of colon Social History Social History (Updated 11/28/22 @ 11:18 by Sapphire Gamez CMA) Smoking packs per day: 1 Smoking cigarettes per day: 20.0 Years smoked: 10 Smoking pack-years: 10.00 Smoking status: Former smoker Tobacco type: cigarettes Second hand tobacco smoke exposure: No Additional smoking assessment comments: stopped smoking in 2007 smoked for 10 prior to that Alcohol intake: current Drinks per week: 10 Alcohol use details: BEERS Substance use: current Substance use type: does not use Lack of Transportation: No Lack of Food: Never True Current Housing: I Have Housing Concerned About Future Housing: No Difficulty Paying Gas/Electric Bills: No Difficulty Paying for Meds: No Currently Unemployed: No Education: Bachelor's Degree Difficulty w/ Childcare or Family Care: No Living arrangements: with family Spiritual care concerns: No Meds Home Medications and Allergies Home Medications Medication Instructions Recorded Confirmed Type allopurinol 100 mg tablet 100 mg PO DAILY #90 tabs 07/19/22 01/16/23 Rx lisinopril 20 1 tablet PO DAILY #90 tabs 07/19/22 01/16/23 Rx mg-hydrochlorothiazide 25 mg tablet (Zestoretic) cyclobenzaprine 5 mg tablet 5 mg PO TID PRN muscle spasm #20 12/01/22 01/16/23 Rx tabs Allergies Allergy/AdvReac Type Severity Reaction Status Date / Time erythromycin base Allergy Intermediate VOMITING? Verified 01/16/23 06:57 Penicillins Allergy Intermediate Facial Verified 01/16/23 06:57 swelling Vital Signs Vital Signs - 24 hr 01/16/23 06:27 Temperature 97.2 F L Pulse Rate 73 Respiratory Rate 18 Blood Pressure 114/74 Pulse Oximetry 99 Oxygen Delivery Room Air Exam Const: General: comfortable and no acute distress HENMT: Face/Nose/Sinus: Normal nares present Eyes: General: appearance normal, both eyes and all related structures Neck: Neck: no JVD Resp: Auscultation: clear to auscultation bilaterally Cardio: Rate: regular rate Rhythm: regular rhythm GI: Inspection: non-distended GI Palp: Yes Soft to palpation Skin: General skin exam: normal color Neuro: General: gait normal Speech: normal speech Extrem: General: normal to inspection Psych: Mental Status: mental status grossly normal Assessment and Plan Assessment and plan (1) Screening for colo
--- NOTE | 2023-01-16 08:06 | SUR.OPER ---
EGD start [id number], Colonoscopy start 805
[2023-01-16 08:16] VITALS: BP 105/84; PULSE 71; RESP 30; O2SAT 100
[2023-01-16 08:26] VITALS: BP 98/60; PULSE 64; RESP 23; O2SAT 100
[2023-01-16 08:36] VITALS: BP 101/64; PULSE 63; RESP 23; O2SAT 100
== END 2023-01-16 08:46 | disposition home or self-care (01) ==
PROVIDERS: PCP Internal Medicine; Visit Provider Internal Medicine Gastroenterology
PROC: 0DJ08ZZ Inspection of Upper Intestinal Tract, Via Natural or Artificial Opening Endoscopic (ICD-10-PCS; CPT 43235; principal; 2023-01-16 08:00)
DX: Z12.11 Encounter for screening for malignant neoplasm of colon (principal); K64.8 Other hemorrhoids; R07.89 Other chest pain; K21.9 Gastro-esophageal reflux disease without esophagitis; I10 Essential (primary) hypertension; Z87.891 Personal history of nicotine dependence
CPT/HCPCS: 43239; 45378; 88305; J2704; J7120

== ENCOUNTER 2023-11-24 12:16 | Emergency (ER) | payer OTHER, SELFPAY ==
--- NOTE | ~2023-11-24 | XR_ITS ---
EXAMINATION: XR foot RT min 3V DATE: 11/24/2023 13:33 INDICATION: Right foot foreign body. TECHNIQUE: 4 views of right foot were obtained. COMPARISON: Right foot radiographs 05/01/2011 FINDINGS: Bone alignment is normal. No fracture. There is mild osteoarthritis of talonavicular joint and severe osteoarthritis of first metatarsophalangeal joint. There is mild osteoarthritis of some of the interphalangeal joints. IMPRESSION: 1. No radiopaque foreign body. 2. Polyarticular osteoarthritis. Reviewed, dictated and finalized at location A.
[2023-11-24 12:40] VITALS: BP 121/78; PULSE 76; RESP 16; TEMP 36.2; O2SAT 100
--- NOTE | 2023-11-24 13:59 | ED.SKABFB ---
HPI - Skin/Abscess/Foreign Bdy General Chief complaint: Skin/Abscess/Foreign Body Stated complaint: Splinter Right Foot Time Seen by Provider: 11/24/23 13:51 Source: patient and RN notes reviewed Mode of arrival: ambulatory Limitations: no limitations History of Present Illness HPI narrative: Patient presents today with a splinter in the bottom of his right heel. [place] and was walking around barefoot. He is unsure what the splinter could be. It has been in his foot for 5 days. He has not attempted removal as he is unable to see the bottom of his foot. Related Data Allergies Allergy/AdvReac Type Severity Reaction Status Date / Time erythromycin base Allergy Intermediate VOMITING? Verified 11/24/23 13:26 Penicillins Allergy Intermediate Facial Verified 11/24/23 13:26 swelling Review of Systems Review of Systems: CONSTITUTIONAL: Denies body aches, fever, chills, or sweats. EYES: Denies visual changes, redness, or discharge. ENT: Denies rhinorrhea, congestion, sore throat, or otalgia. CARDIOVASCULAR: Denies chest pain, palpitations, or edema. RESPIRATORY: Denies cough or dyspnea. GASTROINTESTINAL: Denies abdominal pain, nausea, vomiting, or diarrhea. GENITOURINARY: Denies dysuria or hematuria. SKIN: + foreign body MUSCULOSKELETAL: Denies back pain, joint pain, or myalgia. NEUROLOGIC: Denies headache, numbness, tingling, or weakness. PSYCH: Denies depression or anxiety. [facility] Past Medical History Medical History History of hypertension Hospital discharge follow-up Family History Family History Father Family history of hypercholesterolemia Grandparent Hypertension Family history of cardiovascular disease Carcinoma of colon Social History Social History Social History: Caffeine- coffee Smoking packs per day: 1 Smoking cigarettes per day: 20.0 Years smoked: 10 Smoking pack-years: 10.00 Smoking status: Former smoker Tobacco type: cigarettes Second hand tobacco smoke exposure: No Smoking end date: 05/21/07 Additional smoking assessment comments: stopped smoking in 2007 smoked for 10 prior to that Alcohol intake: current Drinks per week: 10 Alcohol use details: BEERS Substance use: never Substance use type: does not use Lack of Transportation: No Lack of Food: Never True Current Housing: I Have Housing Concerned About Future Housing: No Difficulty Paying Gas/Electric Bills: No Difficulty Paying for Meds: No Currently Unemployed: No Education: Bachelor's Degree Difficulty w/ Childcare or Family Care: No Living arrangements: with family Spiritual care concerns: No Comments At time of signature, I have reviewed and agree with nursing past medical, surgical, social and family history unless otherwise noted. Please see nursing chart for further information. There is no relevant family history pertinent to the presenting complaint Exam Narrative: GENERAL: Well-appearing, well-nourished, and in no acute distress. HEAD: Normocephalic, atraumatic. EYES: EOMI. No redness or drainage. Conjunctivae normal. ENT: Mucous membranes pink and moist. NECK: Normal AROM. CHEST: No respiratory distress. EXTREMITIES: Normal range of motion. No edema. SKIN: Warm, dry, no rash. Capillary refill normal. Normal skin turgor. Embedded foreign body in the plantar aspect of the right heel. Mildly tender to palpation. No surrounding edema or erythema. NEURO: No focal deficits. Alert and oriented x3. Gait steady. PSYCH: Normal affect. No signs of depression or anxiety. Course Course Level of Care: Express Care Visit Vital Signs Vital signs: Vital Signs Temperature 97.2 F L 11/24/23 12:40 Pulse Rate 76 11/24/23 12:40 Respiratory Rate 16 07/0
== END 2023-11-24 14:44 | disposition home or self-care (01) ==
PROVIDERS: Emergency Provider Nurse Practitioner; PCP Internal Medicine
DX: S90.851A Superficial foreign body, right foot, initial encounter (principal); W45.8XXA Other foreign body or object entering through skin, initial encounter; Z87.891 Personal history of nicotine dependence; I10 Essential (primary) hypertension
CPT/HCPCS: 10120; 73630; 99213; G0463